=== PATIENT | female | born 1970 | race Caucasian/White ===

== ENCOUNTER 2019-12-24 08:53 | Emergency (ER) | payer OTHER ==
--- OUTSIDE RECORDS SUMMARY | 2019-12-24 09:06 | XMS ---
:1970 Author Organization [facility] Support Name Relationship Address Phone UE Unavailable Unavailable Unavailable NA Unavailable Unavailable Unavailable SHARLA SAMUELS SISTER [address] [place], [place] [address] [place] [address] Re-disclosure Warning The records that you are about to access may contain information from federally- assisted alcohol or drug abuse programs. If such information is present, then the following federally mandated warning applies: This information has been disclosed to you from records protected by federal confidentiality rules (42 CFR part 2). The federal rules prohibit you from making any further disclosure of this information unless further disclosure is expressly permitted by the written consent of the person to whom it pertains or as otherwise permitted by 42 CFR part 2. A general authorization for the release of medical or other information is NOT sufficient for this purpose. The Federal rules restrict any use of the information to criminally investigate or prosecute any alcohol or drug abuse patient.The records that you are about to access may contain highly sensitive health information, the redisclosure of which is protected by Article 27-F of the [facility] Public Health law. If you continue you may haveaccess to information: Regarding HIV / AIDS; Provided by facilities licensed or operated by the [facility] Office of Mental Health; or Provided by the [facility] Office for People With Developmental Disabilities. If such information is present, then the following [facility] mandated warning applies: This information has been disclosed to you from confidential records which are protected by state law. State law prohibits you from making any further disclosure of this information without the specific written consent of the person to whom it pertains, or as otherwise permitted by law. Any unauthorized further disclosure in violation of state law may result in a fine or intermediate sentence or both. A general authorization for the release of medical or other information is NOT sufficient authorization for further disclosure. Encounters Encounter Providers Location Date Indications Data Source(s ) Emergency H 11/13/2018 11:40:00 [facility] EDT - 11/13/2018 Cente r 07:59:00 PM EDT Patient discharged. Medications Medication Brand Start Product Dose Route Administrative Pharmacy [facility] Indications Reaction Description Data Name Date Form Instructions Instructions Source(s) Fluoxetine FLUoxe 1 complet Scott t 20 MG Oral cielo ed Ryan Capsule 20 mg Medical FLUoxetine Capsul Center 20 mg e, Capsule, Ordere Ordered By: d By: Santiago Pace, Sanjeev MDDirection , s: 1 MDDire capsule ctions oral daily : 1 at bedtime capsul e oral daily at bedtim e Mirtazapine mirtaz 1 complet Kendall nt 15 MG Oral apine ed Ryan Tablet 15 mg Medical mirtazapine Tablet Center 15 mg , Tablet, Ordere Ordered By: d By: Sanjeev Woods MDDirection , s: 1 tablet MDDire oral daily ctions at bedtime : 1 tablet oral daily at bedtim e Insurance Providers Payer name Policy type Policy ID Covered Covered republican's Policy P esther / Coverage republican ID relationship to [place] [employer] ormation type [employer] [id number] SP [id number] M O [facility] O [id number] [employer] Problems, Conditions, and Diagnoses Code Display Name Description Problem Type Effective Dates Data Source(s) F32.9 Major depressive MAJOR DEPRESSIVE Diagnosis 11/13/2018 int Ryan disorder, single DISORDER, SINGLE 11:40:00 AM [facility] episode, EPISODE, unspecified UNSPECIFIED F41.9 Anxiety disorder, ANXIETY DISORDER, Diagnosis 11/13/2018 [place] unspecified UNSPECIFIED 11:40:00 AM EDT Medical Center Social History Code Duration Value Status Description Data Source(s ) Smoking Unknown if ever completed Unknown if ever Scott Davis smoked smoked Medical Center Vital Signs ID Date Data Source UNK Name Value Range Interpretation Code Description Data Source(s) Body temperature 36.408602 36.196134 [facility] Respiratory rate 19 /min 19 /min [facility] Oxygen saturation 98 % 98 % [facility] in Arterial blood [facility] Center by Pulse oximetry Heart rate 78 /min 78 /min [facility] Diastolic blood 90 mm[Hg] 90 mm[Hg] [facility] pressure [facility] Center Systolic blood 140 mm[Hg] 140 mm[Hg] [facility] Body weight 70.359014 kg 70.020325 kg [facility] Body temperature 36.819826 36.551231 [facility] Respiratory rate 19 /min 19 /min [facility] Oxygen saturation 97 % 97 % [facility] chandlerep in Arterial blood Medical Center by Pulse oximetry Heart rate 78 /min 78 /min [facility] Body height 157.426966 157.359788 cm [facility] Diastolic blood 104 mm[Hg] 104 mm[Hg] [facility] pressure Medical Center Systolic blood 146 mm[Hg] 146 mm[Hg] [facility] Body mass index 28.2 kg/m2 28.2 kg/m2 [facility] (BMI) [Ratio] Medical [facility] ter Patient Treatment Plan of Care Planned Activity Planned Date Details Description Data Source (s) Fluoxetine 20 MG Oral [facility] Capsule [place] Mirtazapine 15 MG Oral [facility] Tablet [place]
[2019-12-24 09:08] VITALS: BP 139/90; PULSE 95; TEMP 98; BMI 28.0
--- NOTE | 2019-12-24 09:37 | PDOC ---
History of Present Illness - General Chief Complaint: Nausea/Vomiting Stated Complaint: SWOLLEN NECK/VOMITING Time Seen by Provider: 12/24/19 09:11 History Source: Patient Exam Limitations: Clinical Condition - History of Present Illness Initial Comments: 12/24/19 09:32 Patient with no significant past medical history present with complaint of sudden onset of vomiting upon wake this morning after feeling phlegm in the back of her throat and started having swelling to the front of the neck which has improved now. Patient report neck started swelling right away while vomiting and has gone down now without taking any medication and without any intervention. Denies any nausea now. Denies any neck pain. Patient report feeling of phlegm in the back of her throat. Denies fever, sore throat, painful swallowing, cough, shortness of breath, abdominal pain, diarrhea, constipation. Denies any other symptoms Is this a multiple visit Asthma Patient?: No Timing/Duration: resolved prior to arrival Past History - Medical History Allergies/Adverse Reactions: Allergies Allergy/AdvReac Type Severity Reaction Status Date / Time No Known Allergies Allergy Verified 12/24/19 09:01 Home Medications: Ambulatory Orders Levothyroxine [Synthroid -] 112 mcg PO DAILY 12/24/19 COPD: No - Reproductive History Is Patient Now?: No - Psycho-Social/Smoking History Smoking History: Unknown if ever smoked Review of Systems - Review of Systems Able to Perform ROS?: Yes Is the patient limited Estonian proficient: No Constitutional: No: Chills, Fever, Malaise HEENTM: Yes: Symptoms Reported, See HPI, Other (neck swelling improving). No: Eye Pain, Blurred Vision, Tearing, Recent change in vision, Double Vision, Cataracts, Ear Pain, Ocular Prothesis, Ear Discharge, Nose Pain, Nose Congestion, Tinnitus, Nose Bleeding, Hearing Loss, Throat Pain, Throat Swelling, Mouth Pain, Dental Problems, Difficulty Swallowing, Mouth Swelling Respiratory: No: Symptoms reported, See HPI, Cough, Orthopnea, Shortness of Breath, SOB with Exertion, SOB at Rest, Stridor, Wheezing, Productive cough, Hemoptysis, Other Cardiac (ROS): No: Symptoms Reported, See HPI, Chest Pain, Edema, Irregular Heart Rate, Lightheadedness, Palpitations, Syncope, Chest Tightness, Other ABD/GI: Yes: Symptoms Reported, See HPI, Vomiting (resolved). No: Abd. Pain w/ defecation, Blood Streaked Bowels, Constipated, Diarrhea, Nausea, Abdominal cramping Integumentary: No: Symptoms Reported Neurological: No: Symptoms reported All Other Systems: Reviewed and Negative *Physical Exam - Vital Signs Last Vital Signs Temp Pulse Resp BP Pulse Ox 98 F 95 H 16 139/90 95 12/24/19 08:59 12/24/19 08:59 12/24/19 08:59 12/24/19 08:59 12/24/19 08:59 - Physical Exam 12/24/19 09:37 GENERAL: Well developed, well nourished. Awake and alert. No acute distress. HEENT: Normocephalic, atraumatic. PERRLA, EOMI. No conjunctival pallor. Sclera are non-icteric. Moist mucous membranes. Oropharynx is clear. NECK: Supple. Full ROM. No cervical lymphadenopathy. No swelling to neck CARDIOVASCULAR: Regular rate and rhythm. No murmurs, rubs, or gallops. PULMONARY: No evidence of respiratory distress. Lungs clear to auscultation bilaterally. No wheezing, rales or rhonchi. ABDOMINAL: Soft. Non-tender. Non-distended. No rebound or guarding. No organomegaly. Normoactive bowel sounds. MUSCULOSKELETAL Normal range of motion at all joints. SKIN: Warm and dry. Normal capillary refill. No visible swelling to neck NEUROLOGICAL: Alert, awake, appropriate. Gait is normal without ataxia. PSYCHIATRIC: Cooperative. Good eye contact. Appropriate mood General Appearance: Yes: Nourished, Appropriately Dressed. No: Apparent Distress ED Treatment Course - RADIOLOGY Radiology Studies Ordered: Category Date Time Status NECK SOFT TISSUE [RAD] Stat Radiology 12/24/19 09:19 Ordered Medical Decision Making - Medical Decision Making 12/24/19 09:34 Patient with no significant past medical history present with complaint of sudden onset of vomiting upon wake this morning after feeling phlegm in the back of her throat and started having swelling to the front of the neck which has improved now. Patient report neck started swelling right away while vomiting and has gone down now without taking any medication and without any intervention. Denies any nausea now. Patient report feeling of phlegm in the back of her throat. Denies fever, sore throat, painful swallowing, cough, shortness of breath, abdominal pain, diarrhea, constipation. Denies any other symptoms Clinical exam unremarkable with patient in no acute distress. No pain to swallow at this time. No cervical lymphadenopathy. No swelling to neck. Oropharynx patent. No tonsillar swelling or throat erythema. Lungs clear to auscultation bilateral and normal cardio exam. Patient symptoms likely reaction from vomit which cause swelling from phlegm in the throat. X-ray of soft tissue neck ordered to rule out foreign body or acute abnormality neck 12/24/19 11:38 X-ray of soft tissue neck shows no acute abnormality. Patient asymptomatic at this time. Patient symptoms likely from mucus production and swelling exacerbated by over retching. Patient stable for discharge with reassurance and ENT follow-up as needed Discharge - Discharge Information Problems reviewed: Yes Clinical Impression/Diagnosis: Nausea and vomiting in adult, Neck swelling Condition: Improved Disposition: HOME - Admission No - Follow up/Referral Referrals: Mehrdad Blair MD [Staff Physician] - Bradly Hercules MD [Staff Physician] - - Patient Discharge Instructions Additional Instructions: Your x-ray of your neck is normal and shows no foreign body or abnormal findings in the neck. Your vomit was likely caused by phlegms in the back of your throat which triggered the vomit and cause swelling due to reaction from the vomit. take Mucinex as needed for phlegm to help remove phlegm's, increase fluid intake. Follow-up referred ENT if symptoms persist - Post Discharge Activity
== END 2019-12-24 09:57 | disposition home or self-care (01) ==
LOC: JER 08:53
DX: R11.2 Nausea with vomiting, unspecified (principal); R22.1 Localized swelling, mass and lump, neck
CPT/HCPCS: 70360-TC-FY; 99283-25